=== PATIENT | male | born 1985 | race Two or more races ===

== ENCOUNTER 2021-07-23 22:58 | Emergency (ER) | payer MEDICAID ==
[~2021-07-23] VITALS: Ht 177.8 cm; Wt 76.2 kg
[2021-07-23 23:55] LABS: Basophils # (auto) 0 10 ^3/uL (0-0.2); Basophils % (auto) 0.3 % (0.0-2.0); Eosinophils # (auto) 0.6 10 ^3/uL (0-0.8); Eosinophils % (auto) 4.2 % (0.0-7.0); Hematocrit 52.4 % (41.0-53.0); Hemoglobin 17.3 g/dL (13.5-17.5); Lymphocytes # (auto) 2.5 10 ^3/uL (0.4-5.4); Mean Corpuscular Hemoglobin 30.4 pg (28.0-32.0); Mean Corpuscular Hgb Conc. 33.1 g/dL (32.0-36.0); Mean Corpuscular Volume 91.9 fL (80.0-100.0); Monocytes # (auto) 0.9 10 ^3/uL (0-1.3); Monocytes % (auto) 6.5 % (0.0-12.0); Neutrophils # (auto) 9.8 10 ^3/uL (1.6-8.6); Nucleated Red Blood Cells % 0.2 %; Red Cell Distribution Width 12.9 % (11.8-14.3); White Blood Cell 13.7 10^3/uL (4.4-10.8)
[2021-07-24 00:10] LABS: Alanine Aminotransferase 31 U/L (16-61); Anion Gap 8 (5-15); Aspartate Aminotransferase 10 U/L (15-37); BUN/Creatinine Ratio 13.6; Blood Urea Nitrogen 12 mg/dL (7-18); Calcium 8.6 mg/dL (8.5-10.1); Carbon Dioxide 26 mmol/L (21-32); Chloride 106 mmol/L (98-107); GFR African American 126 mL/min; GFR Non-African American 104 mL/min; Glucose 106 mg/dL (74-106); Sodium 140 mmol/L (136-145)
[2021-07-24 00:14] LABS: Alkaline Phosphatase 80 U/L (45-117); Bilirubin, Total 0.3 mg/dL (0.2-1.0); Total Protein 8.3 g/dL (6.4-8.2)
[2021-07-24] MEDS ORDERED: ALBUTEROL SULF 2.5 MG/0.5ML(0.5%) NEB SOLN NEB ONE (01:00)
[2021-07-24] MEDS ORDERED: IPRATROPIUM BROM 0.5 MG/2.5ML INH SOL NEB ONE (01:00)
[2021-07-24] MEDS ORDERED: ONDANSETRON HCL 4 MG/2 ML VIAL ONE (01:10)
[2021-07-24] MEDS ORDERED: IOHEXOL 350 MG/ML 100ML IJ ONE (01:12)
[2021-07-24] MEDS: MAGNESIUM SULFATE 1GM/100ML 100 ML IV SCH ×2 (01:15→02:15)
[2021-07-24] MEDS ORDERED: methylPREDNISolone SOD SUCC 125 MG/2 ML VL IV ONE (01:15)
[2021-07-24] MEDS ORDERED: LORazepam 2MG/ML-1ML VIAL IV ONE (01:15)
[2021-07-24] MEDS ORDERED: ONDANSETRON HCL 4 MG/2 ML VIAL IV ONE (01:15)
[2021-07-24] MEDS ORDERED: TERBUTALINE SULFATE 1 MG/ML 1ML VIAL SC ONE (01:45)
[2021-07-24 05:26] VITALS: BP 127/86
[2021-07-24 06:03] LABS: Urine Blood Negative /uL (Negative); Urine WBC 4 /hpf (0 - 3)
[2021-07-24 06:04] LABS: Urine Bacteria NONE SEEN /hpf (None Seen)
[2021-07-24 06:25] LABS: Alcohol, Urine < 3.0 mg/dL (0-10); Amphetamine Screen, Urine POSITIVE (NEGATIVE); Barbiturate Scree,Urine NEGATIVE (NEGATIVE); Benzodiazephine Screen, Urine NEGATIVE (NEGATIVE); Cocaine Screen, Urine NEGATIVE (NEGATIVE); Opiate Scree,Urine NEGATIVE (NEGATIVE); Phencyclidine Screen, Urine NEGATIVE (NEGATIVE)
[2021-07-24 06:34] LABS: Cannabinoid Screen, Urine POSITIVE (NEGATIVE)
[2021-07-24 07:31] LABS: Urine Specific Gravity > 1.050 (1.001-1.035)
== END 2021-07-24 06:44 | disposition left against medical advice (07) ==
LOC: ER 22:58
DX: R06.02 Shortness of breath (principal); R06.2 Wheezing; Z20.822 Contact with and (suspected) exposure to COVID-19
CPT/HCPCS: 36415; 71045; 71260; 80053; 80307; 81001; 83880; 84484; 85025; 85379; 87426; 93005; 94640; 96365; 96366; 96375; 99285; J2060; J2405; J2930; J3475; J7644; Q9967

== ENCOUNTER → 2021-07-25 02:57 | Emergency (ER) | payer MEDICAID ==
[~2021-07-25] VITALS: Ht 177.8 cm; Wt 77.1 kg
[2021-07-25 03:17] VITALS: BP 130/86
== END | disposition left against medical advice (07) ==
LOC: ER 02:57
DX: R06.02 Shortness of breath (principal); Z53.21 Procedure and treatment not carried out due to patient leaving prior to being seen by health care provider

== ENCOUNTER 2021-12-28 08:36 | Emergency (ER) | payer MEDICAID ==
[~2021-12-28] VITALS: Ht 177.8 cm; Wt 74.8 kg
[2021-12-28 09:51] VITALS: BP 113/60
[2021-12-28] MEDS ORDERED: KETOROLAC TROMETH 60MG/2ML VIAL IM ONE (11:15)
[2021-12-28] MEDS ORDERED: IBUP800T27 PO (11:27)
[2021-12-28] MEDS ORDERED: IBUPROFEN 800 MG TAB PO ONE (11:45)
== END 2021-12-28 12:15 | disposition home or self-care (01) ==
LOC: ER 08:36
DX: S63.92XA Sprain of unspecified part of left wrist and hand, initial encounter (principal); Z79.1 Long term (current) use of non-steroidal anti-inflammatories (NSAID); W23.0XXA Caught, crushed, jammed, or pinched between moving objects, initial encounter; Y93.89 Activity, other specified; Y92.89 Other specified places as the place of occurrence of the external cause; Y99.8 Other external cause status
CPT/HCPCS: 29125; 73130; 99283; J1885

== ENCOUNTER 2022-04-15 16:56 | Emergency (ER) | payer MEDICAID ==
[~2022-04-15 16:56] MED LIST: IBUP800T27 PO
[2022-04-15] MEDS ORDERED: IBUPROFEN 800 MG TAB PO ONE (17:15)
[2022-04-15] MEDS ORDERED: HYDROcodone-ACET 10/325MG TAB PO ONE (20:45)
[2022-04-15 22:00] VITALS: BP 126/74
[2022-04-16] MEDS ORDERED: IBUP800T27 PO (09:00)
== END 2022-04-16 05:30 | disposition left against medical advice (07) ==
LOC: ER 16:56
DX: S82.001A Unspecified fracture of right patella, initial encounter for closed fracture (principal); S93.402A Sprain of unspecified ligament of left ankle, initial encounter; W20.8XXA Other cause of strike by thrown, projected or falling object, initial encounter; Y93.39 Activity, other involving climbing, rappelling and jumping off; Y92.89 Other specified places as the place of occurrence of the external cause; Y99.8 Other external cause status
CPT/HCPCS: 29505; 73562; 73610

== ENCOUNTER 2022-04-16 08:28 | Emergency (ER) | payer MEDICAID ==
[2022-04-16 08:52] VITALS: BP 109/68
[2022-04-16] MEDS ORDERED: IBUPROFEN 800 MG TAB PO ONE (09:00)
[2022-04-16] MEDS ORDERED: IBUP800T27 PO (09:00)
== END 2022-04-16 09:11 | disposition home or self-care (01) ==
LOC: ER 08:28
DX: S82.001D Unspecified fracture of right patella, subsequent encounter for closed fracture with routine healing (principal); W10.8XXD Fall (on) (from) other stairs and steps, subsequent encounter

== ENCOUNTER 2022-07-31 22:54 | Emergency (ER) | payer MEDICAID ==
[~2022-07-31] VITALS: Ht 177.8 cm; Wt 75.0 kg
[2022-07-31] MEDS ORDERED: ALBUTEROL SULF 2.5 MG/0.5ML(0.5%) NEB SOLN NEB ONE (23:00)
[2022-07-31] MEDS ORDERED: IPRATROPIUM BROM 0.5 MG/2.5ML INH SOL NEB ONE (23:00)
[2022-07-31 23:36] LABS: Basophils # (auto) 0.1 10 ^3/uL (0-0.2); Basophils % (auto) 0.5 % (0.0-2.0); Eosinophils # (auto) 0.6 10 ^3/uL (0-0.8); Eosinophils % (auto) 5.9 % (0.0-7.0); Hematocrit 50.3 % (41.0-53.0); Lymphocytes # (auto) 2.8 10 ^3/uL (0.4-5.4); Lymphocytes % (auto) 28.5 % (10.0-50.0); Mean Corpuscular Hemoglobin 30.5 pg (28.0-32.0); Mean Corpuscular Hgb Conc. 33.8 g/dL (32.0-36.0); Mean Corpuscular Volume 90.1 fL (80.0-100.0); Monocytes % (auto) 9.7 % (0.0-12.0); Neutrophils # (auto) 5.5 10 ^3/uL (1.6-8.6); Neutrophils % (auto) 55.4 % (37.0-80.0); Nucleated Red Blood Cells % 0.1 %; Red Blood Cells 5.58 10^6/uL (4.5-5.90); Red Cell Distribution Width 13.1 % (11.8-14.3)
[2022-07-31] MEDS ORDERED: predniSONE 20 MG TAB PO ONE (23:45)
[2022-07-31] MEDS ORDERED: PRED20TA2 PO (23:47)
[2022-07-31] MEDS ORDERED: ALBU108A5 IN (23:47)
[2022-08-01 00:08] LABS: Albumin 4.1 g/dL (3.4-5.0); BUN/Creatinine Ratio 12.5; Calcium 9.2 mg/dL (8.5-10.1); Potassium 4.1 mmol/L (3.5-5.1)
[2022-08-01 00:11] LABS: Bilirubin, Total 0.2 mg/dL (0.2-1.0); Total Protein 7.7 g/dL (6.4-8.2)
[2022-08-01 00:50] VITALS: BP 136/88
== END 2022-08-01 01:01 | disposition home or self-care (01) ==
LOC: ER 23:05
DX: J45.909 Unspecified asthma, uncomplicated (principal)
CPT/HCPCS: 36415; 71045; 80053; 84484; 85025; 93005; 94640; 99285; J7512; J7644

== ENCOUNTER 2023-10-21 00:37 | Emergency (ER) | payer MEDICAID ==
[~2023-10-21] VITALS: Ht 177.8 cm; Wt 75.6 kg
[~2023-10-21 00:37] MED LIST changes: +ALBU108A5 IN; +IBUP-1456 PO; -IBUP800T27 PO; +PRED20TA2 PO
[2023-10-21 01:02] VITALS: BP 114/78; PULSE 78; RESP 16; TEMP 98; O2SAT 99
[2023-10-21] MEDS ORDERED: ALBU108A5 IN (02:43)
== END 2023-10-21 02:46 | disposition home or self-care (01) ==
LOC: ER 00:37
DX: S00.511A Abrasion of lip, initial encounter (principal); Z79.1 Long term (current) use of non-steroidal anti-inflammatories (NSAID); Z79.899 Other long term (current) drug therapy; Y04.2XXA Assault by strike against or bumped into by another person, initial encounter; Y93.89 Activity, other specified; Y92.89 Other specified places as the place of occurrence of the external cause; Y99.8 Other external cause status

== ENCOUNTER 2024-03-13 13:40 | Emergency (ER) | payer MEDICAID ==
[~2024-03-13] VITALS: Ht 177.8 cm; Wt 70.5 kg
[2024-03-13] MEDS ORDERED: IBU600T PO (15:14)
[2024-03-13] MEDS: KETOROLAC TROMETH 60MG/2ML VIAL IM ONE (15:15)
[2024-03-13 15:57] VITALS: BP 142/97; PULSE 94; RESP 18; TEMP 98.4; O2SAT 100
== END 2024-03-13 16:01 | disposition home or self-care (01) ==
LOC: ER 13:40
DX: S82.52XA Displaced fracture of medial malleolus of left tibia, initial encounter for closed fracture (principal); F12.10 Cannabis abuse, uncomplicated; X58.XXXA Exposure to other specified factors, initial encounter; Y93.39 Activity, other involving climbing, rappelling and jumping off; Y92.89 Other specified places as the place of occurrence of the external cause; Y99.8 Other external cause status
CPT/HCPCS: 29515; 73610